=== PATIENT | female | born 1995 | race American Indian/Alaskan Native ===

== ENCOUNTER 2022-04-13 12:30 | Emergency (ER) | payer SELFPAY ==
--- NOTE | 2022-04-13 13:52 | Emergency Department Report ---
ED Female HPI - General Chief complaint: Abdominal Pain Stated complaint: POSSIBLE MISCARRIAGE Time Seen by Provider: 04/13/22 13:49 Source: patient Mode of arrival: Ambulatory Limitations: No Limitations - History of Present Illness Initial comments: Missed menses in February 2022 and restarted heavy bleeding with cramps and clots yesterday. Unsure if but believes she is having a miscarriage. . No dysuria. No fever chills or sweats. -: Gradual Location: suprapubic Radiation: non-radiating Quality: cramping Consistency: constant Improves with: none Worsens with: none Are you Now?: No Associated Symptoms: denies: vaginal discharge, vaginal bleeding, hematuria, rash, seizure - Related Data Allergies Allergy/AdvReac Type Severity Reaction Status Date / Time No Known Allergies Allergy Unverified 04/13/22 12:39 ED Review of Systems ROS: Stated complaint: POSSIBLE MISCARRIAGE Other details as noted in HPI Comment: All other systems reviewed and negative ED Past Medical Hx - Social History Smoking Status: Never Smoker Substance Use Type: None ED Physical Exam - General Limitations: No Limitations General appearance: alert, in no apparent distress - Head Head exam: Present: atraumatic, normocephalic - Eye Eye exam: Present: normal appearance - ENT ENT exam: Present: mucous membranes moist - Neck Neck exam: Present: normal inspection - Respiratory Respiratory exam: Present: normal lung sounds bilaterally. Absent: respiratory distress - Cardiovascular Cardiovascular Exam: Present: regular rate, normal rhythm. Absent: systolic murmur, diastolic murmur, rubs, gallop - GI/Abdominal GI/Abdominal exam: Present: soft, tenderness (suprapubic region. ), normal bowel sounds - Extremities Exam Extremities exam: Present: normal inspection - Back Exam Back exam: Present: normal inspection - Neurological Exam Neurological exam: Present: alert, oriented X3 - Psychiatric Psychiatric exam: Present: normal affect, normal mood - Skin Skin exam: Present: warm, dry, intact, normal color. Absent: rash ED Course Vital Signs 04/13/22 12:36 Temperature 98.8 F Pulse Rate 94 H Respiratory 18 Rate Blood Pressure 147/84 O2 Sat by Pulse 98 Oximetry Critical care attestation.: If time is entered above; I have spent that time in minutes in the direct care of this critically ill patient, excluding procedure time. ED Disposition Condition: Stable Instructions: Abdominal Pain (ED)
[2022-04-13 15:21] LABS: Bilirubin,Urine NEG (Negative); Blood,Urine LG (Negative); Color,Urine Red (Yellow); Urobilinogen,Urine < 2.0 mg/dL (<2.0)
[2022-04-13 15:29] LABS: Mucus,Urine FEW /HPF; RBC,Urine > 182.0 /HPF (0.0-6.0)
[2022-04-13 15:32] LABS: HCG Qualitative,Urine Negative (Negative)
[2022-04-13 16:46] VITALS: BP 130/80
== END 2022-04-13 16:46 | disposition home or self-care (01) ==
LOC: ED 12:30
DX: N92.0 Excessive and frequent menstruation with regular cycle (principal); R10.9 Unspecified abdominal pain
CPT/HCPCS: 81001; 81025; 99283